=== PATIENT | female | born 1960 | race Caucasian/White ===

== ENCOUNTER 2020-08-03 13:02 | Outpatient (REF) | payer MEDICARE, MEDICAID, SELFPAY | END 2020-08-03 13:03 | disposition home or self-care (01) | LOC: HO.LAB 13:02 | PROVIDERS: PCP Family Medicine; Visit Provider Internal Medicine | DX: Z20.828 Contact with and (suspected) exposure to other viral communicable diseases (principal) | CPT/HCPCS: C9803; U0003 ==

== ENCOUNTER 2020-09-23 12:32 | Outpatient (REF) | payer MEDICARE, MEDICAID, SELFPAY ==
[2020-09-24 13:47] LABS: Immunoglobulin A 307 mg/dL (70-320)
[2020-09-27 15:13] LABS: Gliadin Deamidated IgA Ab 5 Units; Gliadin Deamidated IgG Ab 2 Units
[2020-09-28 03:17] LABS: Transglutaminase Ab IgG 4 U/mL; Transglutaminase IgA 1 U/mL
[2020-09-29 21:48] LABS: Endomysial IgA Antibody Negative (Negative)
== END 2020-09-23 12:33 | disposition home or self-care (01) ==
LOC: HO.10HDL 12:32
PROVIDERS: Visit Provider Internal Medicine
DX: R19.7 Diarrhea, unspecified (principal)
CPT/HCPCS: 36415; 82784; 83516; 86255; 86256

== ENCOUNTER 2021-07-30 11:41 | Outpatient (REF) | payer MEDICARE, MEDICAID, SELFPAY | END 2021-07-30 11:42 | disposition home or self-care (01) | LOC: HO.HMGCLDS 11:41 | PROVIDERS: PCP Family Medicine; Visit Provider Internal Medicine | DX: Z20.822 Contact with and (suspected) exposure to COVID-19 (principal) | CPT/HCPCS: C9803; U0003; U0005 ==

== ENCOUNTER 2022-01-09 10:35 | Outpatient (REF) | payer MEDICARE, MEDICAID, SELFPAY ==
--- NOTE | 2022-01-09 10:49 | ECG_ITS ---
Test Reason : BLOSSOM Blood Pressure : / mmHG Vent. Rate : 068 BPM Atrial Rate : 068 BPM P-R Int : 256 ms QRS Dur : 094 ms QT Int : 420 ms P-R-T Axes : 059 046 055 degrees QTc Int : 446 ms Sinus rhythm with 1st degree A-V block Septal infarct , age undetermined Abnormal ECG When compared to the previous EKG of Normal sinus rhythm has replaced Atrial fibrillation Referred By: Andi Long Electronically Signed By:ETELVINA CASTRO MD
[2022-01-09 11:20] LABS: MANUAL DIFF FLAG NO
[2022-01-09 11:35] LABS: Basophils Absolute Auto 0.1 X10*3/uL (0.0-0.2); Basophils Percent Auto 0.7 % (0-2); Eosinophils Absolute Auto 0.2 X10*3/uL (0.0-0.4); Eosinophils Percent Auto 2.7 % (0-4); Hematocrit 47.3 % (37.0-47.0); Hemoglobin 15.6 g/dl (12.0-16.0); Imm Gran Abs Auto 0.03 X10*3/uL (0.00-0.03); Imm Gran Pct Auto 0.4 % (0.0-0.4); Lymphocytes Absolute Auto 1.7 X10*3/uL (1.2-4.9); Lymphocytes Percent Auto 25.6 % (20-40); Mean Corpuscular Hemoglobin 29.9 pg (27.0-33.0); Mean Corpuscular Volume 90.6 fL (80.0-98.0); Mean Platelet Volume 11.5 fL (9.4-12.3); Monocytes Absolute Auto 0.5 X10*3/uL (0.1-1.2); Monocytes Percent Auto 7.1 % (2-11); Neutrophils Absolute Auto 4.3 x10*3/uL (2.0-8.3); Neutrophils Percent Auto 63.5 % (45-73); Platelet Count 170 X10*3/uL (160-400); Red Blood Count 5.22 X10*6/uL (4.20-5.50); Red Cell Distribution Width 13.8 % (11.0-16.0); White Blood Count 6.8 X10*3/uL (4.8-10.8)
[2022-01-09 11:41] LABS: Estimated Average Glucose 120 mg/dL; Hemoglobin A1c % 5.8 %
[2022-01-09 11:59] LABS: Alanine Aminotransferase 13 U/L (0-31); Albumin Level 4.1 g/dL (3.5-5.0); Alkaline Phosphatase 114 U/L (39-117); Anion Gap 14 (12-20); Aspartate Amino Transferase 15 U/L (5-31); Bilirubin Direct 0.2 mg/dL (0.0-0.5); Bilirubin Total 0.5 mg/dL (0.0-1.0); Blood Urea Nitrogen 15 mg/dL (9-16); Calcium 9.4 mg/dL (8.4-10.2); Carbon Dioxide 25 mmol/L (22-29); Chloride 106 mmol/L (96-108); Cholesterol 216 mg/dL; Estimated Glomerular Filt Rate 54; Glucose Random 107 mg/dL (60-115); HDL Cholesterol 67 mg/dL; LDL Cholesterol Calculated 124 mg/dl; Potassium 4.9 mmol/L (3.3-5.1); Sodium 140 mmol/L (135-145); Total Protein 7.4 g/dL (6.5-8.0); Triglycerides 128 mg/dL
[2022-01-09 12:22] LABS: Free T4 (Free Thyroxine) 1.56 ng/dL (0.71-1.85); Thyroid Stimulating Hormone 4.58 uIU/mL (0.32-4.0)
== END 2022-01-09 10:36 | disposition home or self-care (01) ==
LOC: HO.LAB 10:35
PROVIDERS: PCP Family Medicine; Visit Provider Nurse Practitioner Psychiatric/Mental Health
DX: F32.9 Major depressive disorder, single episode, unspecified (principal); F41.9 Anxiety disorder, unspecified
CPT/HCPCS: 36415; 80048; 80061; 80076; 83036; 84436; 84439; 84443; 85025; 93005

== ENCOUNTER 2022-09-08 13:15 | Outpatient (RCR) | payer MEDICARE, MEDICAID, SELFPAY ==
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
[2022-08-25 13:50] VITALS: BP 130/70; PULSE 76; TEMP 37.1; BMI 46.1
--- NOTE | 2022-08-25 14:04 | PC.ADMIT ---
Patient was referred to [facility] by [facility] where patient was seen as she is struggling with increased depression with passive SI, and increased anxiety with panic attacks. She has been disabled for the past 5-6 years. Patient reports her family are very supportive. Patient is alert and oriented x4. Calm and cooperative. Presented with depressed mood and affect. Denied SI or thoughts to harm herself. Copy of safety plan given to patient. Medications reconciled with patient medication list and patient's pharmacy. She reports she is taking her medications as prescribed. Stated VNA visits her twice a week.
[2022-08-25 15:54] LABS: Amphetamine Screen Urine Not Detected (Not Detect); Barbiturates, Urine Not Detected (Not Detect); Benzodiazepines Screen Urine Not Detected (Not Detect); Cannabinoid Screen Urine Not Detected (Not Detect); Cocaine Screen Urine Not Detected (Not Detect); Fentanyl, urine Not Detected (Not Detect); Opiate Screen Urine Not Detected (Not Detect); Phencyclidine Screen Urine Not Detected (Not Detect)
--- NOTE | 2022-08-30 10:01 | P.PNPSP_ITS ---
Subjective Subjective Date of Service: 08/30/22 Reason For Visit: anxiety,depression Medical Problems Affecting Mental Status: No Interim History: Reports anxiety is improving. Describes mood as ?good ?. No panic attacks within past week. Finds current medication regimen helpful. Finding groups helpful in learning new coping skills. No SI, no safety concerns. Medication Compliance: Yes Side effects from medications: No Attending Groups: Yes Review of Systems Acute medical concerns: No Medical Review of Systems: unchanged Review of Systems Review of Systems Yes all other systems are reviewed and are negative Constitutional: Reports no additional constitutional complaints Mental Status Exam Mental Status Exam Narrative: NAD Patient Appearance: Appropriate Patient Orientation: Person, Place, Time and Situation Level of Consciousness: Appropriate Patient Behavior: Appropriate, Cooperative and Good Eye Contact Mood Description: Anxious (improving) Affect Description: Appropriate Patient Cognition Impaired: No Ability to Follow Directions: Excellent Speech Pattern: Appropriate Memory Description: Intact Hallucinations: None Delusions: Not Present Thought Process: Intact Thought Content: positive for Intact Judgement: Fair Diagnostics Vital Signs (24Hr): BMI result Body Mass Index 46.1 Assessment & Plan Assessment & Plan (1) BLOSSOM (generalized anxiety disorder): Status: Acute Code(s): F41.1 - Generalized anxiety disorder Assessment and Plan: Reports anxiety is improving. Able to sit and participate in groups. Was able to spend holiday with sister without any concerns. Describes mood as ?good ?. No panic attacks within past week. Finds current medication regimen helpful. Does not feel she needs any changes at this time. Finding groups helpful in learning new coping skills. Finding them supportive, with helpful information. States that she is practicing the skills she has learned. No SI, no safety concerns. Has been assigned a new psychiatric provider through [facility]. She has called to schedule appt. (2) Panic disorder [episodic paroxysmal anxiety]: Status: Acute Code(s): F41.0 - Panic disorder [episodic paroxysmal anxiety] Plan 1. Continue with current [facility] plan of care. 2. Continue with current medication regimen as prescribed by outpatient provider. 3. Follow-up as per protocol. Patient educated on: diagnosis, medication risk/benefits and therapeutic strategies Informed Consent: understands Reason for contiued partial hosp. stay Substantial Risk for: inability to function Certification I certify that partial hospital treatment is medically necessary due to the symptoms and problems resulting from the patient's mental illness and the failure to treat the patient at the partial hospital level of care would likely result in the patient requiring inpatient psychiatric care which could not be prevented at a less intensive level of care. Total time managing care of this patient today ____ minutes. Discharge Plan Discharge Attending provider: Grayson Ruiz Medications: No Action furosemide 40 mg tablet 1 tab PO DAILY latanoprost 0.005 % drops 1 drp ophthalmic (eye) BEDTIME levothyroxine 137 mcg tablet 1 tab PO DAILY atorvastatin 80 mg tablet 1 tab PO DAILY diltiazem HCl 180 mg capsule,extended release 24hr 1 cap PO DAILY tolterodine 4 mg capsule,extended release 24hr 1 cap PO DAILY lisinopril 20 mg tablet 1 tab PO DAILY clonazepam 1 mg tablet 1 tab PO BID PRN (Reason: anxiety) trazodone 100 mg tablet 1 tab PO BEDTIME flecainide 100 mg tablet 0.5 tab PO BID nystatin 100,000 unit/gram powder 1 applic topical BID Xarelto 20 mg tablet 1 tab PO QPM Label Comments: Reviewed with patient instructions to take at dinnertime. Trulicity 0.75 mg/0.5 mL pen injector 0.75 mg subcut QWEEK
--- NOTE | 2022-08-31 15:34 | HO.PHPIOP ---
Case opened in tx team
--- NOTE | 2022-09-08 10:23 | P.PNPSP_ITS ---
Subjective Subjective Date of Service: 09/08/22 Reason For Visit: anxiety,depression Medical Problems Affecting Mental Status: No Interim History: Describes mood as I'm feeling great . Less anxious, no panic. No SI/HI, no safety concerns. Current medications working well. Feels ready for discharge from [facility] today. Medication Compliance: Yes Side effects from medications: No Attending Groups: Yes Review of Systems Medical Review of Systems: unchanged Review of Systems Review of Systems Yes all other systems are reviewed and are negative Constitutional: Reports no additional constitutional complaints Mental Status Exam Mental Status Exam Narrative: NAD Patient Appearance: Appropriate Patient Orientation: Person, Place, Time and Situation Level of Consciousness: Appropriate Patient Behavior: Appropriate, Cooperative and Good Eye Contact Mood Description: Happy Affect Description: Appropriate Patient Cognition Impaired: No Ability to Follow Directions: Excellent Speech Pattern: Clear and Appropriate Memory Description: Intact Hallucinations: None Delusions: Not Present Thought Process: Intact Thought Content: positive for Intact Judgement: Good Diagnostics Vital Signs (24Hr): BMI result Body Mass Index 46.1 Assessment & Plan Assessment & Plan (1) BLOSSOM (generalized anxiety disorder): Status: Acute Code(s): F41.1 - Generalized anxiety disorder Assessment and Plan: Describes mood as I'm feeling great . Has found program to be very helpful in learning how to manage anxiety symptoms. Less anxious, no panic. Plans to go to local senior center, and begin to use their exercise room, as well as other activities. No SI/HI, no safety concerns. Current medications working well. Feels ready for discharge from [facility] today. (2) Panic disorder [episodic paroxysmal anxiety]: Status: Acute Code(s): F41.0 - Panic disorder [episodic paroxysmal anxiety] Plan 1. Patient appears stable for discharge from [facility] at this time. 2. patient to follow up with outpatient providers going forward. Patient educated on: diagnosis, medication risk/benefits and therapeutic strategies Reason for contiued partial hosp. stay Substantial Risk for: stable for discharge Certification I certify that partial hospital treatment is medically necessary due to the symptoms and problems resulting from the patient's mental illness and the failure to treat the patient at the partial hospital level of care would likely result in the patient requiring inpatient psychiatric care which could not be prevented at a less intensive level of care. Total time managing care of this patient today ___20_ minutes. Discharge Plan Discharge Attending provider: Grayson Ruiz Medications: No Action furosemide 40 mg tablet 1 tab PO DAILY latanoprost 0.005 % drops 1 drp ophthalmic (eye) BEDTIME levothyroxine 137 mcg tablet 1 tab PO DAILY atorvastatin 80 mg tablet 1 tab PO DAILY diltiazem HCl 180 mg capsule,extended release 24hr 1 cap PO DAILY tolterodine 4 mg capsule,extended release 24hr 1 cap PO DAILY lisinopril 20 mg tablet 1 tab PO DAILY clonazepam 1 mg tablet 1 tab PO BID PRN (Reason: anxiety) trazodone 100 mg tablet 1 tab PO BEDTIME flecainide 100 mg tablet 0.5 tab PO BID nystatin 100,000 unit/gram powder 1 applic topical BID Xarelto 20 mg tablet 1 tab PO QPM Label Comments: Reviewed with patient instructions to take at dinnertime. Trulicity 0.75 mg/0.5 mL pen injector 0.75 mg subcut QWEEK Stand Alone Forms: Patient Portal Discharge page Patient Education: Depression (DC), Anxiety (ED)
--- NOTE | 2022-09-12 10:17 | HO.PHPIOP ---
I spoke with the clients therapist , Tasha KUHN to inform her of client discharge from the program.
== END 2022-09-08 23:59 | disposition home or self-care (01) ==
LOC: HO.PHPA 13:15
PROVIDERS: Visit Provider Psychiatry & Neurology Psychiatry
DX: F41.0 Panic disorder [episodic paroxysmal anxiety] (principal); F41.1 Generalized anxiety disorder; Z79.899 Other long term (current) drug therapy
CPT/HCPCS: 80307; 90791; 90853

== ENCOUNTER 2023-07-25 12:06 | Outpatient (AMB) | payer MEDICARE, MEDICAID, SELFPAY ==
--- NOTE | 2023-07-25 12:28 | A.OFFVIS_ITS ---
Intake Vital Signs 07/25/23 12:29 Height 5 ft 4 in Weight 278 lb BMI 47.7 Intake Visit Reasons: New PT - Left knee pain, last inj 08/09/23 Intake Note: Ariane is a 62 year old female who presents today as a new patient for a evaluation of her left knee pain, last injection 08/09/[address] Torres. The patient describes her pain as sharp in nature. Most of the pain is along the medial aspect of her knee. She has taken Tylenol which gives her minimal relief. She denies any locking or giving way. She would like to hold off on surgery for as long as possible. Allergies Latex, Natural Rubber Allergy (Verified 07/25/23 12:31) Rash IV Contrast Allergy (Uncoded 07/25/23 12:31) Unknown Medication List - Last Reconciled 07/25/23 by Destin Pardo MD atorvastatin 1 tab PO DAILY diltiazem HCl 1 cap PO DAILY flecainide 0.5 tabs PO BID furosemide 1 tab PO DAILY latanoprost 0.005% 1 drp ophthalmic (eye) BEDTIME levothyroxine 1 tab PO DAILY lisinopril 1 tab PO DAILY mirtazapine 7.5 mg PO DAILY nystatin 1 applic topical BID rivaroxaban (Xarelto) 1 tab PO QPM tolterodine ER 1 cap PO DAILY trazodone 1 tab PO BEDTIME [facility] Medical History Venous thromboembolism Shortness of breath Paroxysmal atrial fibrillation EUGENIO (obstructive sleep apnea) GERD (gastroesophageal reflux disease) Essential hypertension Dyslipidemia Congestive heart failure with preserved left ventricular function, NYHA class 1 Asthma Hyperlipidemia Hypothyroidism Diabetes mellitus, type II History of blood clots Atrial fibrillation Sleep apnea Surgical History History of tonsillectomy History of bladder surgery Household Members: None Patient Tobacco Use Status: Former Tobacco user Physical Exam Vital Signs: BMI result Body Mass Index 47.7 Const Other: Well-nourished well-developed very friendly female awake alert and oriented x3 in no acute distress Extrem Other: Bilateral lower extremity examination shows good capillary refill, no skin lesions noted, normal sensation light touch The left knee examination shows a minimal effusion, palpable crepitus with range of motion, pain with range of motion, range of motion from -3 degrees to 115 degrees, no instability Office Procedures Joint Injection/Drain Joint Injection/Drain Primary Site: left knee Prep: site was prepped using aseptic technique Injected: 40 mg of, Kenalog and 1% plain lidocaine Procedure: The patient tolerated the procedure well Coding - Large joint Procedure code (CPT) selection complete Results Reviewed Results Reviewed: X-rays of the patient's right knee show moderate joint space narrowing most significant in the medial compartment, subchondral sclerosis, no acute bony abnormalities Assessment & Plan Assessment & Plan (1) Arthritis of left knee: Code(s): M17.12 - Unilateral primary osteoarthritis, left knee Plan Ms. Vazquez the the the the the the presents with left knee pain due to degenerative joint disease. I had a lengthy discussion with the patient regarding the treatment options. She wishes to hold off on surgery for as long as possible. I agree with this plan. The risks and benefits of a left knee cortisone injection were discussed at length with the patient. The patient wished to proceed. She tolerated the injection well. She will continue with her home exercise program. She will follow up with me on an as-needed basis should her symptoms not plateau at an unacceptable level over the next few months. Feel free to call me at any time should questions regarding her orthopedic management arise. Thank you very much for asking me to see this very friendly patient. I spent 22 minutes in reviewing the patient's records and imaging studies, seeing the patient and documenting in the medical record. Orders: Orders XR knee LT 3V Today M25.562 - Pain in left knee AMB Joint Injection/Aspiration Today M17.12 - Unilateral primary osteoarthritis, left knee Medications: New tramadol 50 mg PO Q8H PRN 40 tabs 0RF pain Coding Level of Care Code New Pt Level 2 (37955) Diagnoses Arthritis of left knee M17.12 CPT Codes Coding - Large joint: 18665 - Large joint ([id number])
[2023-07-25 12:29] VITALS: BMI 47.7
== END 2023-07-25 13:06 | disposition home or self-care (01) ==
PROVIDERS: PCP Family Medicine; Visit Provider Orthopaedic Surgery
DX: M17.12 Unilateral primary osteoarthritis, left knee (principal)
CPT/HCPCS: 20610; 99204

== ENCOUNTER 2023-07-25 14:49 | Outpatient (REF) | payer MEDICARE, MEDICAID, SELFPAY ==
--- NOTE | ~2023-07-25 | XR_ITS ---
EXAMINATION: XR KNEE, LEFT CLINICAL INFORMATION: Pain COMPARISON: Left knee radiograph from 08/01/2017 TECHNIQUE: Three views of the left knee. FINDINGS: No acute visible fracture or dislocation. Multicompartment degenerative changes with narrowing of the medial femorotibial compartments and patellofemoral compartment. Periarticular aspect along the superior and inferior margins patella, distal femoral condyle, and tibial plateau. Enthesopathy at the quadriceps tendon insertion site. Joint space alignment are otherwise maintained. Small to moderate knee joint effusion. Soft tissues are unremarkable. Atherosclerotic calcifications are noted. XR/XR knee LT 3V IMPRESSION: 1. No acute visible fracture or dislocation. 2. Multicompartment degenerative changes with narrowing of the medial femorotibial compartments and patellofemoral compartment. 3. Small to moderate knee joint effusion.
== END 2023-07-25 14:50 | disposition home or self-care (01) ==
LOC: HO.HOSX 14:49
PROVIDERS: Visit Provider Orthopaedic Surgery
DX: M17.12 Unilateral primary osteoarthritis, left knee (principal)
CPT/HCPCS: 20610; 73562; 99202; J3301

== ENCOUNTER 2023-10-18 10:57 | Outpatient (AMB) | payer MEDICARE, MEDICAID, SELFPAY ==
[2023-10-18 10:58] VITALS: BMI 47.7
--- NOTE | 2023-10-18 10:58 | MHC.OFFVIS ---
Intake Vital Signs 10/18/23 10:58 Height 5 ft 4 in Weight 278 lb BMI 47.7 Intake Visit Reasons: OV-Left knee pain, last inj 07/25/23 Intake Note: Ifeanyi is a 63 year old female who presents with Left knee pain. Patient reports that her last injection was on 07/25/2023. The patient states that she got fairly good relief from the injection. Her pain has returned. She denies any fevers or chills. She has taken Tylenol which gives only mild relief. She wishes to hold off on surgery for as long as possible. Allergies Latex, Natural Rubber Allergy (Verified 10/18/23 11:03) Rash IV Contrast Allergy (Uncoded 07/25/23 12:31) Unknown Medication List - Last Reconciled 10/18/23 by Destin Pardo MD atorvastatin 1 tab PO DAILY diltiazem HCl 1 cap PO DAILY flecainide 0.5 tabs PO BID furosemide 1 tab PO DAILY latanoprost 0.005% 1 drp ophthalmic (eye) BEDTIME levothyroxine 1 tab PO DAILY lisinopril 1 tab PO DAILY mirtazapine 7.5 mg PO DAILY nystatin 1 applic topical BID rivaroxaban (Xarelto) 1 tab PO QPM tolterodine ER 1 cap PO DAILY tramadol 50 mg PO Q8H PRN trazodone 1 tab PO BEDTIME PFSH Medical History Venous thromboembolism Shortness of breath Paroxysmal atrial fibrillation EUGENIO (obstructive sleep apnea) GERD (gastroesophageal reflux disease) Essential hypertension Dyslipidemia Congestive heart failure with preserved left ventricular function, NYHA class 1 Asthma Hyperlipidemia Hypothyroidism Diabetes mellitus, type II History of blood clots Atrial fibrillation Sleep apnea Surgical History History of tonsillectomy History of bladder surgery Social History Household Members: None Patient Tobacco Use Status: Former Tobacco user Physical Exam Vital Signs: BMI result Body Mass Index 47.7 Const Other: Well-nourished well-developed very friendly female awake alert and oriented x3 in no acute distress Extrem Other: Bilateral lower extremity examination shows good capillary refill, no skin lesions noted, normal sensation light touch Left knee examination shows a minimal effusion, palpable crepitus with range of motion, pain with range of motion, no instability Office Procedures Joint Injection/Drain Joint Injection/Drain Primary Site: left knee Prep: site was prepped using aseptic technique Injected: 40 mg of, DepoMedrol and 1% plain lidocaine Procedure: The patient tolerated the procedure well Coding - Large joint Procedure code (CPT) selection complete Results Reviewed Results Reviewed: X-rays of the patient's left knee show joint space narrowing, subchondral sclerosis, osteophyte formation, no acute bony abnormalities Assessment & Plan Assessment & Plan (1) Arthritis of left knee: Code(s): M17.12 - Unilateral primary osteoarthritis, left knee Plan Ms. Vazquez presents with left knee pain due to degenerative joint disease. I had a lengthy discussion with the patient regarding the treatment options. She wishes to hold off on surgery for as long as possible. I agree with this plan. The risks and benefits of a left knee cortisone injection were discussed at length with the patient. The patient wished to proceed with the injection. She tolerated the injection well. She will continue with her home exercise program. She will follow up with me on an as-needed basis should her symptoms not plateau at an unacceptable level over the next few months. Feel free to call me at any time should questions regarding her orthopedic management arise. I spent 22 minutes in reviewing the patient's records and imaging studies, seeing the patient and documenting in the medical record. Orders: Orders AMB Joint Injection/Aspiration Today M17.12 - Unilateral primary osteoarthritis, left knee Coding Level of Care Code Est Pt Level 2 (26828) Diagnoses Arthritis of left knee M17.12 CPT Codes Coding - Large joint: 28401 - Large joint ([id number])
== END 2023-10-18 11:20 | disposition home or self-care (01) ==
PROVIDERS: PCP Family Medicine; Visit Provider Orthopaedic Surgery
DX: M17.12 Unilateral primary osteoarthritis, left knee (principal)
CPT/HCPCS: 20610; 99213

== ENCOUNTER → 2023-10-18 10:57 | Outpatient (BNVA) | payer MEDICARE, MEDICAID, SELFPAY | PROVIDERS: PCP Family Medicine; Visit Provider Orthopaedic Surgery | DX: M17.12 Unilateral primary osteoarthritis, left knee (principal) | CPT/HCPCS: 20610; 99212; J1020 ==

== ENCOUNTER 2024-06-09 06:16 | Day surgery (SDC) | payer MEDICARE, MEDICAID, SELFPAY ==
[2024-06-04 07:39] VITALS: BMI 45.5
--- NOTE | 2024-06-05 15:12 | HO.ANESPROP2 ---
Documented by User: Maci Sharif NP 06/05/24 15:14 HPI - Anesthesia Eval Consult details Narrative: 63yo F for Right Cataract Extraction IOL Insertion No previous cataract on record Xarelto for afib/VTE PMFSH Active Problems Active Problems: All Active Problems Arthritis of left knee (Acute) Left knee pain (Acute) BLOSSOM (generalized anxiety disorder) (Acute) Anxiety disorder, unspecified (Acute) Panic disorder [episodic paroxysmal anxiety] (Acute) Past Medical History Medical History Anxiety Severe obesity Osteoarthritis Depression Bilateral knee pain Autoimmune thyroiditis Venous thromboembolism Shortness of breath Paroxysmal atrial fibrillation EUGENIO (obstructive sleep apnea) GERD (gastroesophageal reflux disease) Essential hypertension Dyslipidemia Congestive heart failure with preserved left ventricular function, NYHA class 1 Asthma Hyperlipidemia Hypothyroidism Diabetes mellitus, type II History of blood clots Atrial fibrillation Sleep apnea Surgical History Surgical History History of bunionectomy History of tonsillectomy History of bladder surgery Social History Social History Household Members: None Are you a primary memory care program resident to a significant other at home: No Do you presently have visiting nurse or other home services: No Patient Tobacco Use Status: Former Tobacco user Use of substances other than those prescribed or required for medical reasons: No Have you been hit, kicked, punched, or otherwise hurt by someone within the past year? If so, by whom?: No Are you DNR?: No Advance Directives: No Advance Directives Information Provided: Yes Advance Directives on File: No Recently lost weight without trying: No Eating poorly because of decreased appetite: No Nutrition Risks: No Nutritional Risk Patient : No : No Meds Allergies Allergy/AdvReac Type Severity Reaction Status Date / Time Latex, Natural Rubber Allergy Severe Rash Verified 06/09/24 06:52 IV Contrast Allergy Unknown Unknown Uncoded 06/09/24 06:52 Home Medications ?Medication ?Instructions ?Recorded ?Confirmed ?Last Taken ?Type atorvastatin 80 mg tablet 1 tab PO DAILY 08/25/22 06/09/24 06/09/24 History diltiazem HCl 180 mg 1 cap PO DAILY 08/25/22 06/09/24 06/09/24 History capsule,extended release 24 hr furosemide 40 mg tablet 1 tab PO DAILY 08/25/22 06/09/24 06/08/24 History levothyroxine 137 mcg tablet 1 tab PO DAILY 08/25/22 06/09/24 06/09/24 History lisinopril 20 mg tablet 1 tab PO DAILY 08/25/22 06/09/24 06/08/24 History nystatin 100,000 unit/gram topical 1 applic topical BID 08/25/22 06/09/24 08/25/22 History powder rivaroxaban 20 mg tablet (Xarelto) 1 tab PO QPM 08/25/22 06/09/24 06/08/24 History tolterodine 4 mg capsule,extended 1 cap PO DAILY 08/25/22 06/09/24 06/09/24 History release 24 hr trazodone 100 mg tablet 1 tab PO BEDTIME 08/25/22 06/09/24 08/24/22 21:30 History acetaminophen 325 mg tablet 650 mg PO Q6H PRN Pain 06/04/24 06/09/24 Unknown History albuterol sulfate 90 mcg/actuation 2 puff inhalation QID PRN 06/04/24 06/09/24 Unknown History aerosol inhaler (Ventolin HFA) Shortness Of Breath Or Wheezing budesonide-formoterol HFA 80 2 puff inhalation BID 06/04/24 06/09/24 Unknown History mcg-4.5 mcg/actuation aerosol inhaler diclofenac sodium 1 % topical gel 2 g topical QID 06/04/24 06/09/24 Unknown History fluoxetine 40 mg capsule 40 mg PO DAILY 06/04/24 06/09/24 06/09/24 History lorazepam 1 mg tablet 0.5 - 1 mg PO DAILY PRN Anxiety 06/04/24 06/09/24 Unknown History Exam Height,Weight and Vital Signs: Height 5 ft 4.57 in Weight 122.3 kg Assessment and Plan Assessment Anesthesia Assessment: Chart Reviewed Documented by User: Deana Ford MD 06/09/24 08:37 [facility] Past Medical History Medical History Anxiety Severe obesity Osteoarthritis Depression Bilateral knee pain Autoimmune thyroiditis Venous thromboembolism Shortness of breath Paroxysmal atrial fibrillation EUGENIO (obstructive sleep apnea) GERD (gastroesophageal reflux disease) Essential hypertension Dyslipidemia Congestive heart failure with preserved left ventricular function, NYHA class 1 Asthma Hyperlipidemia Hypothyroidism Diabetes mellitus, type II History of blood clots Atrial fibrillation Sleep apnea Family History Family history of problems with anesthesia: No Surgical History Surgical History History of bunionectomy History of tonsillectomy History of bladder surgery History of Problems with Anesthesia: No Social History Social History Household Members: None Are you a primary memory care program resident to a significant other at home: No Do you presently have visiting nurse or other home services: No Patient Tobacco Use Status: Former Tobacco user Use of substances other than those prescribed or required for medical reasons: No Have you been hit, kicked, punched, or otherwise hurt by someone within the past year? If so, by whom?: No Are you DNR?: No Advance Directives: No Advance Directives Information Provided: Yes Advance Directives on File: No Recently lost weight without trying: No Eating poorly because of decreased appetite: No Nutrition Risks: No Nutritional Risk Patient : No : No Meds Allergies Allergy/AdvReac Type Severity Reaction Status Date / Time Latex, Natural Rubber Allergy Severe Rash Verified 06/09/24 06:52 IV Contrast Allergy Unknown Unknown Uncoded 06/09/24 06:52 Home Medications ?Medication ?Instructions ?Recorded ?Confirmed ?Last Taken ?Type atorvastatin 80 mg tablet 1 tab PO DAILY 08/25/22 06/09/24 06/09/24 History diltiazem HCl 180 mg 1 cap PO DAILY 08/25/22 06/09/24 06/09/24 History capsule,extended release 24 hr furosemide 40 mg tablet 1 tab PO DAILY 08/25/22 06/09/24 06/08/24 History levothyroxine 137 mcg tablet 1 tab PO DAILY 08/25/22 06/09/24 06/09/24 History lisinopril 20 mg tablet 1 tab PO DAILY 08/25/22 06/09/24 06/08/24 History nystatin 100,000 unit/gram topical 1 applic topical BID 08/25/22 06/09/24 08/25/22 History powder rivaroxaban 20 mg tablet (Xarelto) 1 tab PO QPM 08/25/22 06/09/24 06/08/24 History tolterodine 4 mg capsule,extended 1 cap PO DAILY 08/25/22 06/09/24 06/09/24 History release 24 hr trazodone 100 mg tablet 1 tab PO BEDTIME 08/25/22 06/09/24 08/24/22 21:30 History acetaminophen 325 mg tablet 650 mg PO Q6H PRN Pain 06/04/24 06/09/24 Unknown History albuterol sulfate 90 mcg/actuation 2 puff inhalation QID PRN 06/04/24 06/09/24 Unknown History aerosol inhaler (Ventolin HFA) Shortness Of Breath Or Wheezing budesonide-formoterol HFA 80 2 puff inhalation BID 06/04/24 06/09/24 Unknown History mcg-4.5 mcg/actuation aerosol inhaler diclofenac sodium 1 % topical gel 2 g topical QID 06/04/24 06/09/24 Unknown History fluoxetine 40 mg capsule 40 mg PO DAILY 06/04/24 06/09/24 06/09/24 History lorazepam 1 mg tablet 0.5 - 1 mg PO DAILY PRN Anxiety 06/04/24 06/09/24 Unknown History Exam Airway Mallampati Class: II TM Dist: >3cm Neck ROM: Full Heart: rrr Lungs: cta Assessment and Plan Assessment Anesthesia Assessment: Anesthesia Plan Discussed Final Anesthetic Review Family History of Problems with Anesthesia: No History of Problems with Anesthesia: No NPO: Yes ASA Class: III Final Preanesthetic Review: No Changes in Pt Med Stat, Meds/Allgs Chart Reviewed, Consent Obtained/Reviewed and Anes Risks/Benef Reviewed Patient Risk: Intermediate Procedure Risk: Low Anesthetic Plan Anesthetic Plan: MAC: Disposition: Standard PACU
[2024-06-09] MEDS: Tetracaine HCl/PF 0.5% Oph Sol 4 ML DROPS 1 DROP EYE-RIGHT (07:00)
[2024-06-09] MEDS: Cyclopentolate 1 % Ophth Sol 2 ML DRPBTL 1 DROP EYE-RIGHT ×3 (07:01→07:17)
[2024-06-09 07:02] VITALS: BP 155/78; PULSE 63; RESP 16; TEMP 36.4; O2SAT 96
[2024-06-09] MEDS: Tropicamide 1 % Ophth Sol 3 ML BTL 1 DROP EYE-RIGHT ×3 (07:03→07:19)
[2024-06-09] MEDS: Ketorolac Tromethamine 0.5% Op 10 ML DROPS 1 DROP EYE-RIGHT ×3 (07:05→07:21)
[2024-06-09] MEDS: Phenylephrine HCL 2.5% Oph SoL 2 ML BOTTLE 1 DROP EYE-RIGHT ×3 (07:07→07:23)
[2024-06-09 07:09] VITALS: BMI 46.3
[2024-06-09] MEDS: Lactated Ringers 500 ML 50 ML IV (07:19)
--- NOTE | 2024-06-09 07:34 | PC.NURSE ---
Patient in preop. States Last time I had surgery they gave me anesthesia with the mask and they had problems with my oxygen, I think it dropped during surgery . Marco HASTINGS made aware, at bedside. SaO2 96-97% room air. Lung sounds clear. Patient last took home inhalers days ago. No new orders at this time.
--- NOTE | 2024-06-09 08:19 | P.PCNO_ITS ---
Ophthalmology Procedure Procedure Date of Service: 06/09/24 Ophthalmology Viscoelastic: Healon Duet Dual Pack Pro Ophthalmology Lenses: IOL Acrysof MP - [id number] (19) Procedure Notes: PREOPERATIVE DIAGNOSIS: Decreased visual acuity right eye secondary to cataract POSTOPERATIVE DIAGNOSIS: Same PROCEDURE: Right cataract extraction with intraocular lens insertion SURGEON: Eddie Salazar M.D. ANESTHESIA: Topical/MAC ESTIMATED BLOOD LOSS: None COMPLICATIONS: None After obtaining informed consent, the patient was brought to the operating room suite and placed in the supine position. After adequate sedation per anesthesia, topical drops of Tetracaine were given to the right eye. The eye was then prepped and draped in the usual sterile fashion. The operating room microscope was then positioned over the operative eye and a lid speculum placed. A paracentesis was created. Viscoelastic was then instilled into the anterior chamber. A three plane incision was then created temporally, utilizing a 2.85 mm keratome. Capsulotomy forceps were then utilized to create a circular tear capsulotomy. Hydrodissection and hydrodelineation were carried out until adequate mobilization of the nucleus occurred. Phacoemulsification was then utilized to remove the dense central nucl eus followed by removal of the cortical material utilizing the automated aspiration irrigation unit. Viscoelastic was instilled into the posterior capsular bag followed by placement of a posterior chamber intraocular lens without difficulty. The residual Viscoelastic was then removed utilizing the automated IA machine. The wound was checked and found to be watertight. The patient tolerated the procedure well and the lid speculum was removed. Intracameral injection of Vigamox 0.1 mL followed by a subtenon injection of Kenalog-40 0.2 mL were administered. The patient will be seen in the a.m.
--- NOTE | 2024-06-09 08:19 | MHC.SHP ---
Pre-Procedural Eval Section A - 24 Hr Update-Section A only Date of Service: 06/09/24 The patient is an INPATIENT: No Changes since office visit: No Cold of Flu in the past 2 weeks, No New Medical Problems, No Changes in Medication and No Patient answered all questions The patient has been examined within 24 hours of the surgical procedure. The History & Physical has been completed within 30 days and I have reviewed it.: Yes Section B - Complete if H&P > 30 days Chief Complaint: Age-related nuclear cataract, right eye Allergies: Allergies Allergy/AdvReac Type Severity Reaction Status Date / Time Latex, Natural Rubber Allergy Severe Rash Verified 06/09/24 06:52 IV Contrast Allergy Unknown Unknown Uncoded 06/09/24 06:52 Plan Diagnosis/Plan: Unchanged I have reviewed the history and physical and performed a pertinent physical examination on my patient. No changes have occurred unless specified. Time Spent With Patient Time: Total time managing care of this patient today ____ minutes.
[2024-06-09 08:51] VITALS: BP 162/70; PULSE 64; RESP 16; TEMP 36.1; O2SAT 97
== END 2024-06-09 09:21 | disposition home or self-care (01) ==
PROVIDERS: PCP Family Medicine; Visit Provider Ophthalmology
PROC: (CPT 66985; principal; 2024-06-09 08:00)
DX: H25.11 Age-related nuclear cataract, right eye (principal); H52.4 Presbyopia; H40.053 Ocular hypertension, bilateral; I48.0 Paroxysmal atrial fibrillation; I11.0 Hypertensive heart disease with heart failure; I50.1 Left ventricular failure, unspecified; E11.9 Type 2 diabetes mellitus without complications; E06.3 Autoimmune thyroiditis; G47.33 Obstructive sleep apnea (adult) (pediatric); J45.909 Unspecified asthma, uncomplicated; E78.5 Hyperlipidemia, unspecified; F41.1 Generalized anxiety disorder; F41.0 Panic disorder [episodic paroxysmal anxiety]; Z79.01 Long term (current) use of anticoagulants; Z79.899 Other long term (current) drug therapy; Z99.89 Dependence on other enabling machines and devices; Z91.040 Latex allergy status; Z91.041 Radiographic dye allergy status; Z87.891 Personal history of nicotine dependence; Z98.890 Other specified postprocedural states
CPT/HCPCS: 66984; J2250; J3301; V2630

== ENCOUNTER 2024-06-23 06:08 | Day surgery (SDC) | payer MEDICARE, MEDICAID, SELFPAY ==
[2024-06-04 07:45] VITALS: BMI 45.5
--- NOTE | 2024-06-19 13:24 | HO.ANESPROP2 ---
Documented by User: Maci Sharif NP 06/19/24 13:25 HPI - Anesthesia Eval Consult details Narrative: 63yo F for Left Cataract Extraction IOL Insertion Xarelto for afib/VTE Right eye 06/09/24: Midaz 2 PMFSH Active Problems Active Problems: All Active Problems (Updated 06/09/24 @ 07:09 by Jennifer Reynoso RN) Arthritis of left knee (Acute) Left knee pain (Acute) BLOSSOM (generalized anxiety disorder) (Acute) Anxiety disorder, unspecified (Acute) Panic disorder [episodic paroxysmal anxiety] (Acute) Past Medical History Medical History Anxiety Severe obesity Osteoarthritis Depression Bilateral knee pain Autoimmune thyroiditis Venous thromboembolism Shortness of breath Paroxysmal atrial fibrillation EUGENIO (obstructive sleep apnea) GERD (gastroesophageal reflux disease) Essential hypertension Dyslipidemia Congestive heart failure with preserved left ventricular function, NYHA class 1 Asthma Hyperlipidemia Hypothyroidism Diabetes mellitus, type II History of blood clots Atrial fibrillation Sleep apnea Family History Family history of problems with anesthesia: No Surgical History Surgical History Hx of cataract extraction History of bunionectomy History of tonsillectomy History of bladder surgery History of Problems with Anesthesia: No Social History Social History Household Members: None Are you a primary child care cook to a significant other at home: No Do you presently have visiting nurse or other home services: No Patient Tobacco Use Status: Former Tobacco user Use of substances other than those prescribed or required for medical reasons: No Have you been hit, kicked, punched, or otherwise hurt by someone within the past year? If so, by whom?: No Are you DNR?: No Advance Directives: No Advance Directives Information Provided: Yes Advance Directives on File: No Eating poorly because of decreased appetite: No Nutrition Risks: No Nutritional Risk Patient : No : No Meds Allergies Allergy/AdvReac Type Severity Reaction Status Date / Time Latex, Natural Rubber Allergy Severe Rash Verified 06/23/24 06:29 IV Contrast Allergy Unknown Unknown Uncoded 06/23/24 06:29 Home Medications ?Medication ?Instructions ?Recorded ?Confirmed ?Last Taken ?Type atorvastatin 80 mg tablet 1 tab PO DAILY 08/25/22 06/09/24 06/09/24 History diltiazem HCl 180 mg 1 cap PO DAILY 08/25/22 06/09/24 06/23/24 History capsule,extended release 24 hr furosemide 40 mg tablet 1 tab PO DAILY 08/25/22 06/09/24 06/08/24 History levothyroxine 137 mcg tablet 1 tab PO DAILY 08/25/22 06/09/24 06/23/24 History lisinopril 20 mg tablet 1 tab PO DAILY 08/25/22 06/09/24 06/08/24 History nystatin 100,000 unit/gram topical 1 applic topical BID 08/25/22 06/09/24 08/25/22 History powder rivaroxaban 20 mg tablet (Xarelto) 1 tab PO QPM 08/25/22 06/09/24 06/08/24 History tolterodine 4 mg capsule,extended 1 cap PO DAILY 08/25/22 06/09/24 06/23/24 History release 24 hr trazodone 100 mg tablet 1 tab PO BEDTIME 08/25/22 06/09/24 08/24/22 21:30 History acetaminophen 325 mg tablet 650 mg PO Q6H PRN Pain 06/04/24 06/09/24 Unknown History albuterol sulfate 90 mcg/actuation 2 puff inhalation QID PRN 06/04/24 06/09/24 Unknown History aerosol inhaler (Ventolin HFA) Shortness Of Breath Or Wheezing budesonide-formoterol HFA 80 2 puff inhalation BID 06/04/24 06/09/24 Unknown History mcg-4.5 mcg/actuation aerosol inhaler diclofenac sodium 1 % topical gel 2 g topical QID 06/04/24 06/09/24 Unknown History fluoxetine 40 mg capsule 40 mg PO DAILY 06/04/24 06/09/24 06/09/24 History lorazepam 1 mg tablet 0.5 - 1 mg PO DAILY PRN Anxiety 06/04/24 06/09/24 Unknown History Exam Height,Weight and Vital Signs: Height 5 ft 4.57 in Weight 122.3 kg Assessment and Plan Assessment Anesthesia Assessment: Chart Reviewed Final Anesthetic Review Family History of Problems with Anesthesia: No History of Problems with Anesthesia: No Documented by User: Vandana Cha MD 06/23/24 07:39 [facility] Past Medical History Medical History Anxiety Severe obesity Osteoarthritis Depression Bilateral knee pain Autoimmune thyroiditis Venous thromboembolism Shortness of breath Paroxysmal atrial fibrillation EUGENIO (obstructive sleep apnea) GERD (gastroesophageal reflux disease) Essential hypertension Dyslipidemia Congestive heart failure with preserved left ventricular function, NYHA class 1 Asthma Hyperlipidemia Hypothyroidism Diabetes mellitus, type II History of blood clots Atrial fibrillation Sleep apnea Surgical History Surgical History Hx of cataract extraction History of bunionectomy History of tonsillectomy History of bladder surgery Social History Social History Household Members: None Are you a primary child care cook to a significant other at home: No Do you presently have visiting nurse or other home services: No Patient Tobacco Use Status: Former Tobacco user Use of substances other than those prescribed or required for medical reasons: No Have you been hit, kicked, punched, or otherwise hurt by someone within the past year? If so, by whom?: No Are you DNR?: No Advance Directives: No Advance Directives Information Provided: Yes Advance Directives on File: No Eating poorly because of decreased appetite: No Nutrition Risks: No Nutritional Risk Patient : No : No Meds Allergies Allergy/AdvReac Type Severity Reaction Status Date / Time Latex, Natural Rubber Allergy Severe Rash Verified 06/23/24 06:29 IV Contrast Allergy Unknown Unknown Uncoded 06/23/24 06:29 Home Medications ?Medication ?Instructions ?Recorded ?Confirmed ?Last Taken ?Type atorvastatin 80 mg tablet 1 tab PO DAILY 08/25/22 06/09/24 06/09/24 History diltiazem HCl 180 mg 1 cap PO DAILY 08/25/22 06/09/24 06/23/24 History capsule,extended release 24 hr furosemide 40 mg tablet 1 tab PO DAILY 08/25/22 06/09/24 06/08/24 History levothyroxine 137 mcg tablet 1 tab PO DAILY 08/25/22 06/09/24 06/23/24 History lisinopril 20 mg tablet 1 tab PO DAILY 08/25/22 06/09/24 06/08/24 History nystatin 100,000 unit/gram topical 1 applic topical BID 08/25/22 06/09/24 08/25/22 History powder rivaroxaban 20 mg tablet (Xarelto) 1 tab PO QPM 08/25/22 06/09/24 06/08/24 History tolterodine 4 mg capsule,extended 1 cap PO DAILY 08/25/22 06/09/24 06/23/24 History release 24 hr trazodone 100 mg tablet 1 tab PO BEDTIME 08/25/22 06/09/24 08/24/22 21:30 History acetaminophen 325 mg tablet 650 mg PO Q6H PRN Pain 06/04/24 06/09/24 Unknown History albuterol sulfate 90 mcg/actuation 2 puff inhalation QID PRN 06/04/24 06/09/24 Unknown History aerosol inhaler (Ventolin HFA) Shortness Of Breath Or Wheezing budesonide-formoterol HFA 80 2 puff inhalation BID 06/04/24 06/09/24 Unknown History mcg-4.5 mcg/actuation aerosol inhaler diclofenac sodium 1 % topical gel 2 g topical QID 06/04/24 06/09/24 Unknown History fluoxetine 40 mg capsule 40 mg PO DAILY 06/04/24 06/09/24 06/09/24 History lorazepam 1 mg tablet 0.5 - 1 mg PO DAILY PRN Anxiety 06/04/24 06/09/24 Unknown History Exam Airway Mallampati Class: III TM Dist: >3cm Neck ROM: Full Partial: Lower Loose/Missing/Broken Teeth: Yes and Lower Heart: RRR Lungs: CTA Assessment and Plan Assessment Anesthesia Assessment: Anesthesia Plan Discussed Final Anesthetic Review NPO: Yes ASA Class: III Final Preanesthetic Review: Meds/Allgs Chart Reviewed, Consent Obtained/Reviewed and Anes Risks/Benef Reviewed Patient Risk: Intermediate Procedure Risk: Low Anesthetic Plan Anesthetic Plan: MAC: Disposition: Standard PACU
[2024-06-23] MEDS: Lactated Ringers 500 ML 50 ML IV (06:44)
[2024-06-23] MEDS: Cyclopentolate 1 % Ophth Sol 2 ML DRPBTL 1 DROP EYE-LEFT ×3 (06:45→06:54)
[2024-06-23] MEDS: Tetracaine HCl/PF 0.5% Oph Sol 4 ML DROPS 1 DROP EYE-LEFT (06:45)
[2024-06-23] MEDS: Phenylephrine HCL 2.5% Oph SoL 2 ML BOTTLE 1 DROP EYE-LEFT ×3 (06:45→06:54)
[2024-06-23] MEDS: Ketorolac Tromethamine 0.5% Op 10 ML DROPS 1 DROP EYE-LEFT ×3 (06:46→06:54)
[2024-06-23] MEDS: Tropicamide 1 % Ophth Sol 3 ML BTL 1 DROP EYE-LEFT ×3 (06:46→06:54)
[2024-06-23 06:58] VITALS: BP 153/75; PULSE 62; RESP 18; TEMP 36.6; O2SAT 96
--- NOTE | 2024-06-23 07:23 | MHC.SHP ---
Pre-Procedural Eval Section A - 24 Hr Update-Section A only Date of Service: 06/23/24 The patient is an INPATIENT: No Changes since office visit: No Cold of Flu in the past 2 weeks, No New Medical Problems, No Changes in Medication and No Patient answered all questions The patient has been examined within 24 hours of the surgical procedure. The History & Physical has been completed within 30 days and I have reviewed it.: Yes Section B - Complete if H&P > 30 days Chief Complaint: Age-related nuclear cataract, left eye Allergies: Allergies Allergy/AdvReac Type Severity Reaction Status Date / Time Latex, Natural Rubber Allergy Severe Rash Verified 06/23/24 06:29 IV Contrast Allergy Unknown Unknown Uncoded 06/23/24 06:29 Plan Diagnosis/Plan: Unchanged I have reviewed the history and physical and performed a pertinent physical examination on my patient. No changes have occurred unless specified. Time Spent With Patient Time: Total time managing care of this patient today ____ minutes.
--- NOTE | 2024-06-23 07:23 | HO.PNOPHT ---
Ophthalmology Procedure Procedure Date of Service: 06/23/24 Ophthalmology Viscoelastic: Healon Duet Dual Pack Pro Ophthalmology Lenses: IOL Acrysof MP - [id number] (20) Procedure Notes: PREOPERATIVE DIAGNOSIS: Decreased visual acuity left eye secondary to cataract POSTOPERATIVE DIAGNOSIS: Same PROCEDURE: Left cataract extraction with intraocular lens insertion SURGEON: Eddie Salazar M.D. ANESTHESIA: Topical/MAC ESTIMATED BLOOD LOSS: None COMPLICATIONS: None After obtaining informed consent, the patient was brought to the operation room suite and placed in the supine position. After adequate sedation per anesthesia, topical drops of Tetracaine were given to the left eye. The eye was then prepped and draped in the usual sterile fashion. The operating room microscope was then positioned over the operative eye and a lid speculum placed. A paracentesis was created. Viscoelastic was then instilled into the anterior chamber. A three plane incision was then created temporally, utilizing a 2.85 mm keratome. Capsulotomy forceps were then utilized to create a circular tear capsulotomy. Hydrodissection and hydrodelineation were carried out until adequate mobilization of the nucleus occurred. Phacoemulsification was then utilized to remove the dense central nucleus followed by removal of the cortical material utilizing the automated aspiration irrigation unit. Viscoat elastic was instilled into the posterior capsular bag followed by placement of a posterior chamber intraocular lens without difficulty. The residual Viscoat elastic was then removed utilizing the automated IA machine. The wound was check and found to be watertight. The patient tolerated the procedure well and the lid speculum was removed. Intracameral injection of Vigamox 0.1 mL followed by a subtenon injection of Kenalog-40 0.2 mL were administered. The patient will be seen in the a.m.
[2024-06-23 07:51] VITALS: BP 172/90; PULSE 60; RESP 18; TEMP 36.2; O2SAT 97
[2024-06-23 08:06] VITALS: BP 152/77; PULSE 61; RESP 18; TEMP 36.3; O2SAT 97
== END 2024-06-23 08:10 | disposition home or self-care (01) ==
PROVIDERS: PCP Family Medicine; Visit Provider Ophthalmology
PROC: (CPT 66985; principal; 2024-06-23 07:30)
DX: H25.12 Age-related nuclear cataract, left eye (principal); H52.4 Presbyopia; H40.053 Ocular hypertension, bilateral; I11.0 Hypertensive heart disease with heart failure; I50.9 Heart failure, unspecified; I48.0 Paroxysmal atrial fibrillation; R73.03 Prediabetes; J45.909 Unspecified asthma, uncomplicated; E03.9 Hypothyroidism, unspecified; F32.A Depression, unspecified; Z79.01 Long term (current) use of anticoagulants; Z79.899 Other long term (current) drug therapy; Z87.891 Personal history of nicotine dependence
CPT/HCPCS: 66984; J2250; J3010; J3301; V2630